=== PATIENT | male | born 1985 | race Two or more races ===

== ENCOUNTER 2017-06-07 19:21 | Emergency (ER) | payer OTHER ==
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
== END 2017-06-07 20:46 ==
LOC: MW.ED 19:21
DX: S00.01XA Abrasion of scalp, initial encounter (principal); V49.9XXA Car occupant (driver) (passenger) injured in unspecified traffic accident, initial encounter
CPT/HCPCS: 70450; 70450-26; 72125; 72125-26; 99282; 99285-25

== ENCOUNTER 2022-05-19 02:28 | Emergency (ER) | payer SELFPAY | END 2022-05-19 02:45 | LOC: MW.ED 02:28 → MERGE 02:28 → MW.ED 02:45 | DX: Z02.89 Encounter for other administrative examinations (principal) | CPT/HCPCS: 99283 ==

== ENCOUNTER 2022-06-01 02:26 | Emergency (ER) | payer SELFPAY ==
[2022-06-01] MEDS ORDERED: HYDROmorphone 1 MG/ML Syringe IM ONE (02:40)
[2022-06-01] MEDS ORDERED: Ondansetron 4 MG Tab.DIS PO ONE (02:40)
== END 2022-06-01 04:15 | disposition home or self-care (01) ==
LOC: MW.ED 02:26
DX: S59.902A Unspecified injury of left elbow, initial encounter (principal); Z72.0 Tobacco use; W20.8XXA Other cause of strike by thrown, projected or falling object, initial encounter
CPT/HCPCS: 73080; 96372; 99283; A9270; J1170

== ENCOUNTER 2023-11-21 10:46 | Emergency (ER) | payer SELFPAY ==
[2023-11-21] MEDS: Acetaminophen 500 MG Tab PO ONE (11:19)
[2023-11-21] MEDS: Lidocaine 1% 5 ML VIAL INJECT ONE (11:20)
[2023-11-21] MEDS: Diphtheria,Pertussis(Acell),Tetanus Vaccine 0.5 ML Syringe IM ONE (11:44)
[2023-11-21] MEDS: Bacitracin Oint 1 GM U/D Packet TOP ONE (11:47)
== END 2023-11-21 12:07 | disposition home or self-care (01) ==
LOC: MW.ED 10:46
DX: S61.111A Laceration without foreign body of right thumb with damage to nail, initial encounter (principal); Z75.8 Other problems related to medical facilities and other health care; Z23 Encounter for immunization; W31.2XXA Contact with powered woodworking and forming machines, initial encounter
CPT/HCPCS: 12001; 73140; 90471; 90715; 99283; A9270; J3490

== ENCOUNTER → 2024-10-11 | Emergency (ER) | payer SELFPAY | END | disposition left against medical advice (07) | LOC: MW.ED 14:10 | DX: Z53.21 Procedure and treatment not carried out due to patient leaving prior to being seen by health care provider (principal) | CPT/HCPCS: 99282 ==